=== PATIENT | male | born 1950 ===

== ENCOUNTER 2018-03-07 09:39 | Day surgery (SDC) | payer MEDICARE, MEDICAID ==
[2018-03-07 10:29] VITALS: BMI 19.0
--- NOTE | 2018-03-07 11:20 | CP.SDSHP ---
Same Day Surgery H & P - History Proposed Procedure: colonoscopy - Previous Medical/Surgical History Cardiac: Arrhythmia Previous Surgical History: hemorrhoidectomy - Allergies Allergies: Allergies No Known Allergies Allergy (Verified 03/07/18 10:28) - Physical Exam Vital Signs: Vital Signs 03/07/18 10:36 Temperature 98.6 F Pulse Rate 80 Respiratory 20 Rate Blood Pressure 153/83 H O2 Sat by Pulse 99 Oximetry - Date & Time Date: 03/07/18 Time: 11:20 Short Stay Discharge - Short Stay Discharge Admitting Diagnosis/Reason for Visit: HEMORRHAGE OF ANUS AND RECTUM Disposition: HOME/ ROUTINE
[2018-03-07] MEDS ORDERED: Propofol 10 mg/ml Inj (20 ML) ONE ×2 (11:25→11:54)
[2018-03-07] MEDS ORDERED: Lidocaine Hydrochloride 5 ML INJ ONE (11:25)
[2018-03-07 13:31] VITALS: RESP 18; TEMP 98
[2018-03-07 13:35] VITALS: O2SAT 100
[2018-03-07 13:38] VITALS: BP 150/81; PULSE 79
== END 2018-03-07 13:20 | disposition home or self-care (01) ==
LOC: C.ENDO 09:39
PROVIDERS: ATTEND Colon & Rectal Surgery
DX: K62.5 Hemorrhage of anus and rectum (principal); K64.8 Other hemorrhoids
CPT/HCPCS: 45378; J2704